=== PATIENT | female | born 2000 | race Asian ===

== ENCOUNTER 2022-12-10 11:58 | Outpatient (CLI) | payer OTHER, SELFPAY ==
--- NOTE | 2022-12-10 12:15 | CRLHL7_ITS ---
For Patients: As a result of the Cures Act, medical imaging exams and procedure reports are released immediately into your electronic medical record. You may view this report before your referring provider. If you have questions, please contact your health care provider. INDICATION: First trimester scan, establish dates. COMPARISON: None. TECHNIQUE: Real-time ho-scale imaging of the pelvis was performed. FINDINGS: Sonographic imaging demonstrates a single living intrauterine gestation. The embryo demonstrates a regular cardiac rate measuring 176 beats per minute. The embryo`s crown-rump length measurement of 2.8 cm corresponds to a gestational age of 9 weeks 4 days with a sonographic due date of July 11, 2023. There is a normal-appearing yolk sac measuring 4.5 mm. There are no gross abnormalities noted within the embryo at this early state of development. The placenta has not yet developed. The gestational sac has a normal appearance. Superior to the gestational sac is a 6 x 15 x 16 mm subchorionic hemorrhage. The amount of fluid within the sac appears appropriate for gestational age. The cervix is closed. The myometrium appears normal. The ovaries are of normal size. The right ovary measures 3.3 x 2.2 x 2.8 cm. The left ovary measures 3.7 x 1.6 x 2.7 cm. Small corpus luteum cyst of in the left ovary measuring 2.1 x 1.5 x 2 cm. There are no suspicious fluid collections noted in the cul-de-sac. IMPRESSION: Normal first trimester OB ultrasound exam. Gestational age calculated at 9 weeks 4 days with a sonographic due date of July 11, 2023. Subchorionic hemorrhage along the superior aspect of the gestational sac. Dictated by Hal Lares MD @ 12/10/2022 3:36:30 PM (Electronically Signed)
== END 2022-12-10 11:59 | disposition home or self-care (01) ==
LOC: US 11:59
PROVIDERS: Visit Provider Advanced Practice Midwife
DX: Z34.91 Encounter for supervision of normal pregnancy, unspecified, first trimester (principal); Z3A.09 9 weeks gestation of pregnancy
CPT/HCPCS: 76801; 86703; 86803; 86850; 86900; 86901; 87086; 87340

== ENCOUNTER 2022-12-10 13:20 | Outpatient (CLI) | payer OTHER, SELFPAY | END 2022-12-10 13:21 | disposition home or self-care (01) | PROVIDERS: Visit Provider Advanced Practice Midwife | DX: Z34.91 Encounter for supervision of normal pregnancy, unspecified, first trimester (principal); Z3A.09 9 weeks gestation of pregnancy | CPT/HCPCS: 86592; 86703; 86762; 86787; 86803; 86850; 86900; 86901; 87086; 87186; 87340 ==

== ENCOUNTER 2023-01-07 14:17 | Outpatient (CLI) | payer OTHER, SELFPAY | END 2023-01-07 14:18 | disposition home or self-care (01) | LOC: NFLDREF 14:18 | PROVIDERS: Visit Provider Advanced Practice Midwife | DX: Z34.91 Encounter for supervision of normal pregnancy, unspecified, first trimester (principal); Z3A.13 13 weeks gestation of pregnancy | CPT/HCPCS: 87491; 87591 ==

== ENCOUNTER 2023-02-23 13:54 | Outpatient (CLI) | payer OTHER, SELFPAY ==
--- NOTE | 2023-02-23 14:00 | CRLHL7_ITS ---
For Patients: As a result of the Century Cures Act, medical imaging exams and procedure reports are released immediately into your electronic medical record. You may view this report before your referring provider. If you have questions, please contact your health care provider. INDICATION: Evaluate anatomy. COMPARISON: 12/10/2022 TECHNIQUE: Real time ho scale imaging of the fetus was performed as well as color Doppler analysis of the umbilical vessels. FINDINGS: Sonographic imaging demonstrates a single living intrauterine gestation. Fetus demonstrates a regular cardiac rate of 145 beats per minute. Fetus has a breech position. The placenta lies anteriorly without evidence of placenta previa. The edge of the placenta is located 4.5 cm from the internal cervical os. Amniotic fluid volume appears normal. Single deepest vertical pocket: 5.1 cm. The cervix is closed and measures 3.5 cm in length. The composite ultrasound gestational age is calculated at 20 weeks 4 days with an estimated sonographic due date of 07/09/2023. The estimated weight is 351 grams which lies at the 52nd %. The following biometric measurements were obtained: Biparietal diameter: 4.7 cm/20 weeks 2 days 48th% Head circumference: 17.9 cm/20 weeks 2 days 45th% Abdominal circumference: 15.2 cm/20 weeks 3 days 47th% Femur length: 3.3 cm/20 weeks 3 days 48th% The HC/AC ratio measures: 1.18 range (1.07-1.25) On anatomic survey, there is a normal appearance of the cerebral ventricles, cavum septi pellucidi, cisterna magna and cerebellum. The nose, lips, and facial profile appear normal. The cervical, thoracic and lumbar spine are well visualized and appear normal. There is a normal four-chamber heart view and the left and right ventricular outflow tracts appear normal. The diaphragm and stomach appear normal. The kidneys and bladder also appear normal. There is a normal three-vessel cord and cord insertion site. The four extremities appear normal. IMPRESSION: Normal OB ultrasound exam with concordance of clinical and sonographic dating. No intrinsic abnormalities noted on anatomic survey. Dictated by Chato Machado MD @ 02/25/2023 8:57:03 AM (Electronically Signed)
== END 2023-02-23 13:55 | disposition home or self-care (01) ==
LOC: US 13:55
PROVIDERS: Visit Provider Advanced Practice Midwife
DX: Z34.92 Encounter for supervision of normal pregnancy, unspecified, second trimester (principal); Z3A.20 20 weeks gestation of pregnancy
CPT/HCPCS: 76805

== ENCOUNTER 2023-04-21 13:02 | Outpatient (CLI) | payer OTHER, SELFPAY | END 2023-04-21 13:03 | disposition home or self-care (01) | LOC: NFLDREF 04-28 12:16 | PROVIDERS: Visit Provider Advanced Practice Midwife | DX: Z34.93 Encounter for supervision of normal pregnancy, unspecified, third trimester (principal); Z3A.28 28 weeks gestation of pregnancy | CPT/HCPCS: 86592 ==

== ENCOUNTER 2023-04-29 07:55 | Outpatient (CLI) | payer OTHER, SELFPAY | END 2023-04-29 07:56 | disposition home or self-care (01) | PROVIDERS: Visit Provider Advanced Practice Midwife | DX: Z34.93 Encounter for supervision of normal pregnancy, unspecified, third trimester (principal) | CPT/HCPCS: 82951; 82952 ==

== ENCOUNTER 2023-06-17 14:40 | Outpatient (CLI) | payer OTHER, SELFPAY | END 2023-06-17 14:41 | disposition home or self-care (01) | LOC: NFLDREF 07-02 11:58 | PROVIDERS: Visit Provider Advanced Practice Midwife | DX: Z34.93 Encounter for supervision of normal pregnancy, unspecified, third trimester (principal); Z36.85 Encounter for antenatal screening for Streptococcus B; Z3A.36 36 weeks gestation of pregnancy | CPT/HCPCS: 87081; 87653 ==

== ENCOUNTER 2023-07-05 10:10 | Inpatient (IN) | payer OTHER, SELFPAY ==
[2023-07-05] VITALS (32 sets, daily range): BP systolic 79–126; BP diastolic 47–83; PULSE 65–114; RESP 16–18; TEMP 36.4–37.1; O2SAT 96–100; BMI 26.6
[2023-07-05 09:12] LABS: Amnisure Rom* POSITIVE
--- NOTE | 2023-07-05 10:09 | W.PM.LDBA ---
Documented by User: Danyell Tidwell 07/05/23 21:00 Subjective History of Present Illness Time Seen by Provider: 10:09 Date Seen: 07/05/23 Narrative: Patient is being admitted to Labor and Delivery with spontaneous rupture of membrane at 0700 this morning. Clear fluid and irregular contractions. She is a 23 year old at 39 weeks gestation. Her full history and physical was dictated by H&P by Jemma Alva CNM on 06/24/23. Please see this for details. She is opting for 6 hour expectant management after R/B/A were discussed. She plans on having unmedicated . GBS positive discussed antibiotic prophylactic. Specific Issues/Plans [employer] currently deployed, returning on the H&P by Jemma Alva CNM on 06/24/23 -GBS positive - EDWIN 1.5 x 1.6 x 0.6 cm not noted on 20 wk US - Asymptomatic bacteriuria noted in NOB labs, treated with cephalexin 12/12, consider ERIC-declined -Varicella non-immune Recommend vaccine pp - Abnormal 1 hr GCT, passed all values of 3 hr COVID: fully vaccinated, boosted [place], Copy of card made for the chart Flu: declines TDAP: declined RSV: declined 32wk Mental Health: 05/20/2023 OB - Problem Based A/P Additional Plan (1) PROM (premature rupture of membranes): Status: Acute (2) Pain during labor: Status: Acute (3) Rupture of membranes with clear amniotic fluid: Status: Acute (4) Positive GBS test: Status: Acute Plan Assessment and plan SROM clear fluid at 0700 FHT- Category 1 Admit for GBS antibiotic prophylaxis Expectant management Assess after 6 hours Delivery/Labor/Induction Plan Plan: expectant management OB Result Labs Blood Type: A (+) positive GBS Status: positive OB Exam Physical Exam Vital signs: Temp Pulse Resp BP Pulse Ox 97.9 F 65 18 126/83 99 07/05/23 09:06 07/05/23 09:06 07/05/23 09:06 07/05/23 09:06 07/05/23 08:55 Detailed Labor and Delivery Exam Patient Gravid: Yes Contraction Frequency: 3-4 Contraction duration (sec): 50 Tachysystole: No Contraction intensity: Mild Comments: Vitals Reviewed Constitutional:? Alert and oriented x3 HEENT:? Normocephalic, atraumatic Neck:? Supple Lungs:? Clear to auscultation bilaterally Heart:? Regular rate and rhythm, no murmur, rub or gallop Abdomen:? Soft, nontender, and gravid. confirmed with cervical exam. Extremities:? No edema or erythema Cervix: Deferred PER pt's preference. NST: 125 bpm/Moderate variability/ accelerations/no decelerations/ Every 3-4 contractions lasting 50-60 sec Fetus (Single) Amniotic Membrane Fluid Description: Clear Heart Rate Baseline: 125 Monitor Accelerations: Present Monitor Decelerations: None Cinema Or Theatre Manager Variability: Minimal (3-5) Documented by User: Lee Ann Tamayo CNM 07/05/23 21:28 Subjective History of Present Illness Specific Issues/Plans [employer] currently deployed, returning on the H&P by Jemma Alva CNM on 06/24/23 -GBS positive - EDWIN 1.5 x 1.6 x 0.6 cm not noted on 20 wk US - Asymptomatic bacteriuria noted in NOB labs, treated with cephalexin 12/12, consider ERIC-declined -Varicella non-immune Recommend vaccine pp - Abnormal 1 hr GCT, passed all values of 3 hr COVID: fully vaccinated, boosted [place], Copy of card made for the chart Flu: declines TDAP: declined RSV: declined 32wk Mental Health: 05/20/2023 OB - Problem Based A/P Additional Plan (1) PROM (premature rupture of membranes): Status: Acute (2) Pain during labor: Status: Acute (3) Rupture of membranes with clear amniotic fluid: Status: Acute (4) Positive GBS test: Status: Acute Plan ASSESSMENT:? 23 yr old at 39 weeks gestation SROM- clear fluid at 0700 Pt declined labor augmentation ? complicated by:?None Labor type: Spontaneous, Early labor? Category: 1 FHR pattern.?? Labor complicated by: n/a GBS: positive? ? PLAN:? 1. Routine intrapartum cares as ordered. Continue with expectant management. Discussed recommendation of pitocin vs expectant and risk/benefit of each option. If desires expectant recommend no more than 12 hours unless patient is becoming more uncomfortable or labor progression is assessed with cervical change. Patient prefers expectant management. 2. Monitoring per policy intermittent? 3. Planning unmedicated . Candidate for analgesia of choice if desired.?? 4. Patient encouraged to reposition and ambulate to promote physiologic labor and .? 5. GBS prophylaxis initiated for GBS positive status. Will treat with antibiotics per protocol. 6. Anticipate ? I,?Lee Ann Tamayo APRN, SHAYY, was present for visit and have reviewed and agree with documentation by the Certified Nurse Midwifery Student.
[2023-07-05 10:21] LABS: Basophils Absolute Auto 0.05 K/uL (0.00-0.30); Basophils Percent Auto 0.6 % (0.0-3.0); Eosinophils Percent Auto 1.1 % (0.0-7.0); Hematocrit 41.4 % (33.0-51.0); Hemoglobin* 14.2 gm/dL (12.0-16.0); Immature Granulocytes Abs Auto 0.06 K/uL (0.00-0.30); Immature Granulocytes Pct Auto 0.7 %; Lymphocytes Percent Auto 17.7 % (20-44); Mean Corpuscular HGB Conc 34 gm/dL (32-36); Mean Corpuscular Hemoglobin 31 pg (26-34); Mean Corpuscular Volume 89 fL (80-100); Neutrophils Percent Auto 72.9 % (42.0-72.0); Platelet Count* 198 K/uL (140-440); RDW Coefficient of Variation % 12.7 % (11.5-15.5); Red Blood Count 4.63 m/uL (4.00-5.20); White Blood Count* 8.94 K/uL (4.50-11.00)
[2023-07-05] MEDS: LACTATED RINGERS 1000 ML 1,000 ML 125 ML IV (10:21)
[2023-07-05] MEDS: AMPICILLIN 2 GM in 0.9 % SODIUM CHLORIDE Mini-bag 100 ML IVPB (10:22)
[2023-07-05 10:25] LABS: Slide Review Reflex No
--- NOTE | 2023-07-05 12:56 | PC.SOCIAL ---
Received social work referral. Phone call to OB nurse station to discuss referral. Referral due to social drivers of health assessment. Pt answered rarely to how often does anyone, including family, friends and others insult or talk down to you. Pt answered sometimes to how often does anyone, including family, friends and others, scream or curse at you. Met with pt to discuss social drivers of health assessment. Pt informs that she answered rarely and sometimes to the referenced questions due to arguments with her mother. Pt reports that she lived with her mother during her . Pt's reports that her was deployed, but he returned yesterday from deployment. Pt plans to move with her to [place] and does not plan to stay with her mother any longer. Pt reports she has a good relationship with her and currently feels safe at home. No further social work needs. Informed pt if she has any further questions she may reach out to social work department. Provided update to pt's nurse.
--- NOTE | 2023-07-05 13:15 | P.OBHP_ITS ---
OB - H&P: HPI Labor/Induction History of Present Illness Chief Complaint: The patient is a 23 year old 1 para 0 at 39 weeks gestation by LMP , who presents to labor and delivery with SROM at 0700 and irregular contractions. Rated contractions 3/10 on pain scale and coping. She desires expectant managem ent. Presented patient with risk of infection with PROM in the setting of positive GBS status. Chief complaint: Maternity : 1 Para: 0 Narrative: Lurdes Wang is a 23 year old female Specific Issues/Plans [employer] currently deployed, returning on the H&P by Jemma Alva CNM on 06/24/23 -GBS positive - EDWIN 1.5 x 1.6 x 0.6 cm not noted on 20 wk US - Asymptomatic bacteriuria noted in NOB labs, treated with cephalexin 12/12, consider ERIC-declined -Varicella non-immune Recommend vaccine pp - Abnormal 1 hr GCT, passed all values of 3 hr COVID: fully vaccinated, boosted [place], Copy of card made for the chart Flu: declines TDAP: declined RSV: declined 32wk Mental Health: 05/20/2023 History of Present Dating criteria: based on LMP care: good care Medical complications: none Labs Blood type: A (+) positive GBS status: positive Meds Home Medications and Allergies Home Medications Medication Instructions Recorded Confirmed Type vits no.126-ferrous fum 1 tab PO DAILY 12/10/22 07/05/23 History 28 mg iron-folic acid 800 mcg tablet (Classic ) Allergies Allergy/AdvReac Type Severity Reaction Status Date / Time No Known Drug Allergies Allergy Verified 07/05/23 09:14 OB - H&P: Exam Physical Exam: Vital signs: Temp Pulse Resp BP Pulse Ox 98.4 F 114 H 16 109/72 99 07/05/23 12:45 07/05/23 12:45 07/05/23 12:45 07/05/23 12:45 07/05/23 08:55 Narrative: Vitals Reviewed Constitutional:? Alert and oriented x3 HEENT:? Normocephalic, atraumatic Neck:? Supple Lungs:? Clear to auscultation bilaterally Heart:? Regular rate and rhythm, no murmur, rub or gallop Abdomen:? Soft, nontender, and gravid. Vertex confirmed with cervical exam. Extremities:? No edema or erythema Cervix: 3 cm/60%/-2 station/vertex FHT: 125 by Doppler Constitutional: Constitutional: no acute distress OB - Results Labs Labs: Short CBC 07/05/23 Range/Units 10:10 WBC 8.94 (4.50-11.00) K/uL Hgb 14.2 (12.0-16.0) gm/dL Hct 41.4 (33.0-51.0) % Plt Count 198 (140-440) K/uL OB - Problem Based A/P Additional Plan (1) Pain during labor: Status: Acute (2) Rupture of membranes with clear amniotic fluid: Status: Acute (3) Positive GBS test: Status: Acute Plan ASSESSMENT:? 23 yr old at 39 weeks gestation SROM- clear fluid at 0700 Pt declined labor augmentation ? complicated by:?None Labor type: Spontaneous, Early labor? Category: 1 FHR pattern.?? Labor complicated by: n/a GBS : positive? ? PLAN:? 1. Routine intrapartum cares as ordered. Continue with expectant management? 2. Monitoring per policy intermittent? 3. Planning unmedicated . Candidate for analgesia of choice.?? 4. Patient encouraged to reposition and ambulate to promote physiologic labor and .? 5. GBS prophylaxis initiated for GBS positive status. Will treat with antibiotics per protocol. 6. Anticipate ? Delivery/Labor/Induction Plan Plan: expectant management
[2023-07-05] MEDS: AMPICILLIN 1 GM in 0.9 % SODIUM CHLORIDE Mini-bag 100 ML IVPB ×3 (14:31→22:50)
--- NOTE | 2023-07-05 21:48 | PM.OBPNL ---
Documented by User: Danyell Tidwell 07/05/23 21:56 Subjective Time Seen by Provider: 13:00 Date Seen: 07/05/23 Narrative: At 6 hours of expectant management, Pt is open to SVE. She is coping with contractions Objective Exam: SVE: 360/-2 Contractions palpate mild and irregular q 4-6 min FHT 125 by Doppler Vital Signs: Last Vital Signs Temp 98.4 F 07/05/23 20:20 Pulse 97 07/05/23 19:24 Resp 18 07/05/23 19:22 BP 111/72 07/05/23 19:24 Pulse Ox 96 07/05/23 21:27 Pelvic Exam Dilation (cm): 3 Effacement (%): 60 Station: -2 Contractions Monitor mode: Palpation Contraction Frequency: 4-6 Contraction pattern: Irregular Contraction intensity: Mild Assessment Assessment: early labor Station: -2 Amniotic Membrane Status: SROM Heart Rate Baseline: 125 Monitor Accelerations: Present Monitor Decelerations: None Maternal Status: She is ambulating in room and coping well with contractions Plan Plan: Continue with current plan of care Evaluate 2-4 hours or sooner if needed Anticipating SVB Documented by User: Lee Ann Tamayo CNM 07/05/23 22:00 Plan Plan: ASSESSMENT:? 23 yr old at 39 weeks gestation complicated by:?None Labor type: Spontaneous, Early labor? Intermittent auscultation, reassuring Labor complicated by: n/a GBS: positive? ? PLAN:? 1. Routine intrapartum cares as ordered. Continue current management plan 2. Monitoring per policy intermittent? 3. Planning unmedicated . Candidate for analgesia of choice if desired.?? 4. Patient encouraged to reposition and ambulate to promote physiologic labor and .? 5. GBS prophylaxis initiated for GBS positive status. Will treat with antibiotics per protocol. 6. Evaluate 2-4 hours or sooner if needed 7. Anticipate ? I,?Lee Ann Tamayo APRN, SHAYY, was present for visit and have reviewed and agree with documentation by the Certified Nurse Midwifery Student.
--- NOTE | 2023-07-05 22:26 | PM.OBPNL ---
Documented by User: Danyell Tidwell 07/05/23 22:35 Subjective Time Seen by Provider: 22:26 Date Seen: 07/05/23 Narrative: Pt appear a lot more uncomfortable. Breathing through contractions. Requesting Cervical exam Objective Exam: Cervical exam: /- FHT- Category I Ctx- Every 2-3. Lasting 60-90 sec Vital Signs: Last Vital Signs Temp 98.4 F 07/05/23 21:40 Pulse 97 07/05/23 19:24 Resp 18 07/05/23 21:40 BP 111/72 07/05/23 19:24 Pulse Ox 96 07/05/23 21:27 Pelvic Exam Dilation (cm): 5 Effacement (%): 80 Station: -1 Contractions Monitor mode: External Contraction Frequency: 2-3 Contraction pattern: Irregular Contraction intensity: Moderate Assessment Assessment: early labor Station: -1 Amniotic Membrane Status: SROM Status: Category l Heart Rate Baseline: 125 Intermediate Variability: Moderate (6-25) Monitor Accelerations: Present Monitor Decelerations: None Tracing Comments: Contractions are starting are every 2-3 min at time of assessement Labor Progress: Pt starting to be more uncomfortable, coping Plan Plan: ASSESSMENT:? 23 yr old at 39 weeks gestation complicated by:?None Labor type: Spontaneous, Early labor? Intermittent auscultation, reassuring Labor complicated by: n/a GBS: positive? ? PLAN:? 1. Routine intrapartum cares as ordered. Continue current management plan 2. Monitoring per policy intermittent? 3. Planning unmedicated . Candidate for analgesia of choice if desired.?? 4. Patient encouraged to reposition and ambulate to promote physiologic labor and .? 5. GBS prophylaxis initiated for GBS positive status. Will treat with antibiotics per protocol. 6. Evaluate 2-4 hours or sooner if needed 7. Anticipate ? Documented by User: Lee Ann Tamayo CNM 07/05/23 23:19 Plan Plan: ASSESSMENT:? 23 yr old at 39 weeks gestation complicated by:?None Labor type: Spontaneous, Early labor? Intermittent auscultation, reassuring Labor complicated by: n/a GBS: positive? ? PLAN:? 1. Routine intrapartum cares as ordered. Continue current management plan 2. Monitoring per policy intermittent? 3. Planning unmedicated . Candidate for analgesia of choice if desired.?? 4. Patient encouraged to reposition and ambulate to promote physiologic labor and .? 5. GBS prophylaxis initiated for GBS positive status. Will treat with antibiotics per protocol. 6. Evaluate 2-4 hours or sooner if needed 7. Anticipate ? I,?Lee Ann Tamayo APRN, CNLiza, was present for visit and have reviewed and agree with documentation by the Certified Nurse Midwifery Student.
[2023-07-05] MEDS: LIDOCAINE 2% (PF) 5 ML VIAL EPIDURAL (23:45)
[2023-07-05] MEDS: ROPIVACAINE 0.2% 100 ml 100 ML 10 MG EPIDURAL (23:54)
[2023-07-05] MEDS: LACTATED RINGERS 1000 ML 1,000 ML IV (23:59)
[2023-07-06] VITALS (83 sets, daily range): BP systolic 77–136; BP diastolic 42–90; PULSE 68–103; RESP 16–116; TEMP 36.4–37.6; O2SAT 97–99
--- NOTE | 2023-07-06 00:04 | PM.ANBPRC ---
PFSH PFS Medical History (Updated 07/05/23 @ 21:28 by Lee Ann Tamayo CNM) No significant past medical history Surgical History (Updated 12/10/22 @ 14:50 by Silvina Alva CNM) No significant past surgical history Family History (Updated 12/10/22 @ 13:38 by Lee Ann Tamayo CNM) Mother No problems noted. Father No problems noted. Social History (Updated 12/10/22 @ 14:46 by Lee Ann Tamayo CNM) Narrative: SOCIAL Education: High school, [employer] Work: [employer] Partner: [employer] (currently deployed) Lives with: Living with parents Pets: none Abuse: Denies past/present Special Diet: Denies Ok with a blood transfusion: yes Culture or sabianism beliefs: denies RISK FACTORS Exercise Times/wk: walk, active with [employer] Depression/Anxiety: denies history Seat Belt Use: Routinely Smoking: Denies past/present Alcohol/day: Denies while , denies Caffeine: Coffee/tea Drug Use: Denies past/present Chicken Pox: vaccinate? MRSA: Denies What is your current living situation?: I presently have a place to live Problems where you live: no known problems In the past 12 months, utilities in danger of being shut off: no In past 12 months, lack of transportation kept you from medical appts, meetings, work, or getting things needed for daily living: no In the past 12 mos, have been you worried that your food would run out before you had money to buy more?: never true In the past 12 mos, the food you bought just didn't last and you didn't have money to buy more?: never true Smoking Status: Never smoker How often does anyone, including family, friends and others, physically hurt you: never How often does anyone, including family, friends and others, insult or talk down to you: rarely How often does anyone, including family, friends and others, threaten you with harm: never How often does anyone, including family, friends and others, scream or curse at you: sometimes Little interest or pleasure in doing things: not at all Feeling down, depressed, or hopeless: not at all Meds Home Medications and Allergies Home Medications Medication Instructions Recorded Confirmed Type vits no.126-ferrous fum 1 tab PO DAILY 12/10/22 07/05/23 History 28 mg iron-folic acid 800 mcg tablet (Classic ) Allergies Allergy/AdvReac Type Severity Reaction Status Date / Time No Known Drug Allergies Allergy Verified 07/05/23 09:14 Results Labs Labs: Laboratory Results - last 24 hr 07/05/23 07/05/23 08:55 10:10 WBC 8.94 RBC 4.63 Hgb 14.2 Hct 41.4 MCV 89 MCH 31 MCHC 34 RDW Coeff of Macey 12.7 Plt Count 198 Neut % (Auto) 72.9 H Lymph % (Auto) 17.7 L [place] % (Auto) 7.0 Eos % (Auto) 1.1 Baso % (Auto) 0.6 Neut # (Auto) 6.50 Lymph # (Auto) 1.60 [place] # (Auto) 0.60 Eos # (Auto) 0.10 Baso # (Auto) 0.05 Abs Immat Gran (auto) 0.06 Imm/Tot Granulo (auto) 0.7 Membrane Rupture POSITIVE Blood Type A Positive Antibody Screen NEGATIVE Vital Signs Vital Signs: Last Vital Signs Temp 98.8 F 07/05/23 22:38 Pulse 91 07/06/23 00:03 Resp 18 07/05/23 22:38 BP 109/59 L 07/06/23 00:03 Pulse Ox 99 07/06/23 00:00 Weight: 70.261 kg Height: 162.56 cm Anesthesia Procedures Epidural Insertion Patient Location: OB Start Time: 23:30 Stop Time: 23:59 Start Date: 07/05/23 Stop Date: 07/05/23 Reason for Block: procedure for pain Patient Position: sitting Performed By: Alexx Aguirre Preanesthetic Checklist: IV checked, risks and benefits discussed, monitors and equipment checked, pre-op evaluation, timeout performed and anesthesia consent Prep: chlorhexidine gluconate Monitoring: blood pressure monitoring, continuous pulse oximetry and heart rate Approach: midline Vertebral Space: lumbar (1-5) Epidural Technique: ANAY saline Needle Type: Tuohy needle Injection Technique: continuous catheter Needle gauge: 17 Needle Length (cm): 10 cm Needle Insertion Depth (cm): 6 Catheter Gauge: 19 Catheter Type: multi-orifice Catheter at skin depth (cm): 12 Test Dose Result: negative and lidocaine 1.5% with epinephrine 1 to 200,000
--- NOTE | 2023-07-06 00:27 | P.OBPN_ITS ---
Documented by User: Danyell Tidwell 07/06/23 00:35 Subjective Time Seen by Provider: 00:27 Date Seen: 07/06/23 Narrative: Pt is starting to get comfortable with epidural. Objective Vital Signs: Last Vital Signs Temp 98.8 F 07/05/23 23:50 Pulse 90 07/06/23 00:22 Resp 18 07/05/23 23:50 BP 109/60 07/06/23 00:22 Pulse Ox 99 07/06/23 00:10 Pelvic Exam Dilation (cm): 6 Effacement (%): 90 Station: -1 Contractions Monitor mode: External Contraction pattern: Irregular Contraction intensity: Moderate Assessment Assessment: active labor Station: -1 Amniotic Membrane Status: SROM Status: Category l Heart Rate Baseline: 125 Pharmaceutical Plant Operator Variability: Moderate (6-25) Monitor Accelerations: Present Monitor Decelerations: None Labor Progress: Pt is making labor progress without augementation Plan Plan: ASSESSMENT:? 23 yr old at 39 weeks gestation complicated by:?None Labor type: Spontaneous, Active labor Continues FHT monitoring Epidural infusing Cervix: Labor complicated by: n/a GBS: positive ? PLAN:? 1. Routine intrapartum cares as ordered. Continue current management plan 2. Monitoring per policy continuous 3. Patient encouraged to reposition and ambulate to promote physiologic labor and .? 4. GBS prophylaxis initiated for GBS positive status. Will treat with antibiotics per protocol. 5.. Evaluate 2-4 hours or sooner if needed 6. Anticipate ? Documented by User: Lee Ann Tamayo CNM 07/07/23 07:40 Plan Plan: ASSESSMENT:? 23 yr old at 39 weeks gestation complicated by:?None Labor type: Spontaneous, Active labor Continues FHT monitoring Epidural infusing Cervix: Labor complicated by: n/a GBS: positive ? PLAN:? 1. Routine intrapartum cares as ordered. Continue current management plan 2. Monitoring per policy continuous 3. Patient encouraged to reposition and ambulate to promote physiologic labor and .? 4. GBS prophylaxis initiated for GBS positive status. Will treat with antibiotics per protocol. 5.. Evaluate 2-4 hours or sooner if needed 6. Anticipate ? I,?Lee Ann Tamayo APRN, CNLiza, was present for visit and have reviewed and agree with documentation by the Certified Nurse Midwifery Student.
[2023-07-06] MEDS: PHENYLEPHRINE 100 MCG/ML SYRINGE IVP ×5 (00:35→05:39)
[2023-07-06] MEDS: AMPICILLIN 1 GM in 0.9 % SODIUM CHLORIDE Mini-bag 100 ML IVPB ×2 (03:22→07:25)
[2023-07-06] MEDS: OXYTOCIN 30 unit/500 ML in NS 30 UNIT/500 ML BAG IVPB (04:22)
[2023-07-06] MEDS: LACTATED RINGERS 1000 ML 1,000 ML 125 ML IV (04:34)
[2023-07-06] MEDS: ONDANSETRON 2 MG/ML inj 4 MG IV (04:34)
[2023-07-06] MEDS: ACETAMINOPHEN 500 MG TABLET 1000 MG PO ×2 (05:48→23:06)
[2023-07-06] MEDS: ROPIVACAINE 0.2% 100 ml 100 ML 10 MG EPIDURAL (07:05)
[2023-07-06] MEDS: LACTATED RINGERS 1000 ML 1,000 ML 500 ML IV (07:27)
--- NOTE | 2023-07-06 07:34 | PM.OBPNL ---
Documented by User: [email or web address] Diann 07/06/23 11:36 Subjective Time Seen by Provider: 07:00 Date Seen: 07/06/23 Narrative: Pt reports feeling rectal pressure with contractions. Otherwise comfortable with epidural. Patient opted for Pitocin augmentation at 0400 when her contractions were irregular at every 6-7 min after epidural. Pitocin is currently at 3mu. She had low grade fever, Temp 99.6 F. No other sign of suspected infection. Temp came down after fluid bolus. Objective Exam: On exam she was complete and + 1 station Vital Signs: Last Vital Signs Temp 99.6 F 07/06/23 06:22 Pulse 93 07/06/23 07:29 Resp 18 07/06/23 06:22 BP 111/55 L 07/06/23 07:29 Pulse Ox 98 07/06/23 03:24 Pelvic Exam Dilation (cm): 10 Effacement (%): 100 Station: +1 Contractions Monitor mode: External Contraction pattern: Irregular Contraction intensity: Moderate Pitocin Rate (mU/min): 3 Assessment Assessment: active labor Station: +1 Amniotic Membrane Status: SROM Status: Category l Heart Rate Baseline: 125 Custodial Variability: Moderate (6-25) Monitor Accelerations: Present Monitor Decelerations: None Plan Plan: Cervix 10/100/+1 Begin 2nd stage Documented by User: Kiley Noriega CNM 07/06/23 12:01 Subjective Narrative: Pt reports feeling rectal pressure with contractions. Otherwise comfortable with epidural. Patient opted for Pitocin augmentation at 0400 when her contractions were irregular at every 6-7 min after epidural. Pitocin is currently at 3mu. She had low grade fever, Temp 99.6 F. No other sign of suspected infection. Temp came down after fluid bolus. I, Kiley Noriega APRN CNM, was present for visit and have reviewed and agree with documentation by certified nurse midwifery?student.
--- NOTE | 2023-07-06 11:13 | W.PM.OBVAGDE ---
Documented by User: Danyell Tidwell 07/06/23 11:30 OB Procedure Vag Delivery Mother Details Mother Details: The patient is a 23 year-old, 1, Para 0, now para 1 admitted on 07/05/23 at 39 wk gestation. : 1 Para: 1 Weeks Gestation: 39 Admission Date: 07/05/23 Additional Details Amniotic Membrane Status: SROM Amniotic Membrane Rupture Date: 07/05/23 Amniotic Membrane Rupture Time: 07:15 Amniotic Membrane Fluid Description: Clear Analgesia/Anesthesia Type: Epidural Waterbirth: No Pitcoin: Yes Intrapartal Events: Labor Augmentation, ROM >18 Hours and Prolonged 2nd Stage >2.5 Hrs Delivery augmentation: pitocin Labor Onset: 00:00 Complete: 07:00 Pushin:48 Heart: heart tones during second stage were category 1 Delivery Details Delivery Date: 07/06/23 Delivery Time: 10:40 Route of delivery: Infant Gender: Male Viability: Alive; Heart Rate Present Position at Delivery: OA Delivery Details: Patient was admitted for spontaneous rupture of membrane clear fluid at 0000 and progressed with augmentation. Patient was complete at 0700 and pushing at 0740 . of a viable female at 1048 with mother in a semi-lamar position in bed. Vertex delivered OA and restituted to TORRES. No nuchal cord or shoulder. Body delivered easily and without incident. Infant passed to mothers abdomen with a vigorous cry. Cord was clamped and cut at > 5 minutes. APGARS were 8 at one minute and 9 at five minutes respectively. Mouth was bulb suctioned. Intact placenta with a 3 vessel cord delivered spontaneously at 1048. Fundus firm. Small 2nd degree perineal tear was identified and repaired using existing epidural in typical fashion. QBL 70 cc. Mother and baby stable; mother plans to breastfeed. weight pending. 1 Minute Interval Total Score: 8 5 Minute Interval Total Score: 9 Additional Details Shoulder Dystocia: No Placenta Delivery Time: 10:48 Placental Delivery Description: Spontaneous Delivery repair: Vicryl Procedure Done: Global Laceration: Perineal - 2nd Degree (small ) Episiotomy Description: None Blood Loss Measurement Type: QBL (70) Bakri Used: No Sponge/Need Count Correct: Yes Cord Vessel Description: 3 Vessels Event Summary Status: Mother and were stable after delivery. Disposition: floor Documented by User: Kiley Noriega CNM 07/06/23 12:06 OB Procedure Vag Delivery Additional Details Blood Loss: 70
[2023-07-06] MEDS: IBUPROFEN 600 MG TABLET PO (14:48)
[2023-07-07 02:27] LABS: Rapid Plasma Reagin (RPR) Non Reactive (Non Reactive)
[2023-07-07] MEDS: IBUPROFEN 600 MG TABLET PO (02:28)
[2023-07-07 02:31] VITALS: BP 110/70; PULSE 67; RESP 16; TEMP 36.4; O2SAT 96
[2023-07-07 04:52] VITALS: BP 112/60; PULSE 71; RESP 16; TEMP 36.6; O2SAT 96
--- NOTE | 2023-07-07 07:35 | P.OBPN_ITS ---
OB - PN:Subj Subjective Date Seen: 07/07/23 Patient comments OB post-: no complaints [place] status: and doing well feeding status: exclusively Narrative: Lurdes is a 23 y.o. who was admitted to [facility] for labor.? She had an uncomplicated NVD.? ?? The patient feels well.? The pain is well controlled with current medications.? She has no new complaints.? She is breast feeding and reports things are going well.? the patient has done well.? Vitals have been stable.? She has remained afebrile.? Has a good appetite, is tolerating a general diet.? She has been having trouble voiding and needed to be straight cathed times two for lagre amounts since delivery. Will have nursing monitor this today and may need indwelling catheter for a short time.? She is passing gas and has not had a bowel movement.? She is ambulating and denies any dizziness.? Has Small amount of rubra lochia.? OB - PN: Obj Exam Physical Exam: Vital signs: Temp Pulse Resp BP Pulse Ox O2 Del Method 97.8 F 71 16 112/60 96 Room Air 07/07/23 04:52 07/07/23 04:52 07/07/23 04:52 07/07/23 04:52 07/07/23 04:52 07/07/23 04:52 Narrative: GENERAL APPEARANCE:? normal affect, alert, no distress? MOOD:? appropriate? HEENT: normocephalic, neck supple, full ROM? CHEST:? Symmetrical chest wall movement.? Normal respiratory effort.? Clear to auscultation ? HEART:? regular rate and rhythm? ABDOMEN:? soft, non-tender. Uterine fundus is firm, at Umbilicus, Midline and is appropriate for the stage of recovery.? Bowel sounds present.? PERINEUM:? mild edema of the perineum, there is a 2nd degree laceration that is healing well.? EXTREMITIES:? normal and no edema? OB - PN: Obj Data Labs Labs: Laboratory Results - last 24 hr 07/05/23 10:10 RPR Screen Non Reactive OB - PN: A/P Delivery Assessment and Plan (1) care and examination immediately after delivery: Status: Acute (2) Lactating mother: Status: Acute (3) Difficulty voiding: Status: Acute Plan day: 1 Plan: routine care Comments: G 1 P 1 status post uncomplicated NVD??? 1.? Continue route PP cares? 2.? .? May see if desired? 3.? Anticipate discharge home tomorrow? 4. Post delivery voiding difficulty. Insert indwelling catheter if unable to void this morning. Consider removal later this evening.
[2023-07-07 08:36] VITALS: BP 105/71; PULSE 71; RESP 16; TEMP 36.6; O2SAT 96
--- NOTE | 2023-07-07 13:16 | PM.ANPOST ---
Post Anesthesia Note Post Anesthesia Note Patient seen: Inpatient Respiratory Status: adequate Cardiovascular Status: adequate Mental Status: baseline Pain: adequate Temp: baseline Anesthetic awareness: N/A Complications: none Follow care: none
[2023-07-07] MEDS: DOCUSATE SODIUM 100 MG CAPSULE PO (16:47)
[2023-07-07 16:48] VITALS: BP 124/86; PULSE 70; RESP 16; O2SAT 96
[2023-07-07 22:03] VITALS: BP 121/83; PULSE 86; RESP 16; TEMP 36.6; O2SAT 98
[2023-07-08 04:32] VITALS: BP 110/70; PULSE 63; RESP 16; TEMP 36.6; O2SAT 96
[2023-07-08] MEDS: ACETAMINOPHEN 500 MG TABLET 1000 MG PO (04:37)
[2023-07-08 08:00] VITALS: BP 106/66; PULSE 63; RESP 12; TEMP 37.2
--- NOTE | 2023-07-08 08:28 | PM.OBDSVD1 ---
DS: Providers Provider Date Seen: 07/08/23 Date of admission: 07/05/23 10:10 Primary care physician: Not a Local Provider Admitting Clinician: Lee Ann Tamayo CNM Consults: 07/05/23 11:40 Consult to Residential Care Facility Manager [CONS] Routine Comment: Reason for Consult:: Social Service Consult Attending Physician on discharge: Lee Ann Tamayo CNM DS: Diagnosis Discharge Diagnosis (1) care and examination immediately after delivery: Status: Acute (2) Lactating mother: Status: Acute Exam Narrative: Exam Narrative: GENERAL APPEARANCE:? normal affect, alert, no distress MOOD:? appropriate CHEST:? clear to auscultation HEART:? regular rate and rhythm ABDOMEN:? soft, non-tender the uterine fundus is at Umbilicus, Midline and is appropriate for the stage of recovery. PERINEUM:? mild edema of the perineum, there is a Perineal Laceration,?2nd degree, that is healing well. EXTREMITIES:? normal and no edema Const: Vital Signs, click to edit/add: Vital Signs - 24 hr 07/07/23 08:36 07/07/23 16:48 07/07/23 22:03 Temperature 97.8 F 97.9 F Pulse Rate [Pulse Oximeter] 71 70 86 Respiratory Rate 16 16 16 Blood Pressure [Le ft Arm] 105/71 124/86 121/83 Pulse Oximetry 96 96 98 Oxygen Delivery Me thod Room Air Room Air Room Air 07/08/23 04:32 07/08/23 08:00 Temperature 97.9 F 98.9 F Pulse Rate [Pulse Oximeter] 63 63 Respiratory Rate 16 12 Blood Pressure [Le ft Arm] 110/70 106/66 Pulse Oximetry 96 Oxygen Delivery Me thod Room Air Documenting provider has reviewed patient's vital signs: yes OB - DS: Summary Hospital Course Hospital Course: Lurdes is a 23 y.o. G 1 P 1 who was admitted to [facility] for spontaneous labor. ?She had a NVD that was complicated by. The patient feels well. ?The pain is well controlled with current medications. ?She has no new complaints. ?She is breast feeding and reports things are going well. the patient has done well.? Vitals have been stable.? She has remained afebrile.? Has a good appetite, is tolerating a general diet. ?She is voiding without difficulty.? She is passing gas and has not had a bowel movement.? She is ambulating and denies any dizziness.? Has small amount of rubra lochia. She is planning condoms for prevention. Problems: none plan: Discharge home with baby. Follow up in 2 weeks and 6 weeks. , may see if needed Hgb 14.2 prior to delivery, not repeated Peripartum Data delivery method: Vaginal Laceration description: Perineal - 2nd Degree complications: none [place] Infant Gender: Male Infant Discharge Plan: Home Status at Discharge Functional status at discharge: independent ambulation Overall status at discharge: patient is progressing back to baseline Time Spent with Patient Time attestation: Total time spent providing and/or coordinating discharge services: Time spent: Less than 30 minutes Discharge Plan Discharge Disposition: Home, Self-Care Date of Admission: 07/05/23 10:10 Attending Provider on Discharge: Lee Ann Tamayo Primary Care Provider: Provider,Not a Local Condition: Stable Anticipated Discharge Date/Time: 07/08/23 12:00 Discharge Medications: New docusate sodium 100 mg Capsule 100 mg PO DAILY Qty: 90 0RF ibuprofen 600 mg Tablet 600 mg PO Q6H PRNQty: 60 0RF acetaminophen 500 mg Tablet 1,000 mg PO Q6H PRNQty: 0 0RF Continued Classic 28 mg iron- 800 mcg tablet 1 tab PO DAILY Discharge Orders: Discharge Order (Routine); Ordered 07/08/23 Ordered By: Lee Ann Tamayo Patient Education: OB Over the Counter Medication Information, OB Vaginal/Breast Feeding Additional Instructions: Discharge instructions were reviewed with the patient including signs and symptoms of infection and home going medications Nothing vaginally for 6 weeks: no tampons or intercourse Off Work or School for 6 weeks 2-week visit: discuss feeding concerns, review control options and screen for anxiety/depression. 6-week visit for an annual exam. consultation services are available to all mothers and babies for the first year after delivery.? To make an appointment, please call [phone]. Activity Level: Activity as Tolerated Discharge Diet: Regular Follow Up Appointments: [facility] [Provider Group] Forms: [employer] Info Instructions
== END 2023-07-08 12:30 | disposition home or self-care (01) | DRG 807 ==
LOC: OB OUT 10:11 → OB 10:11
PROVIDERS: Admitting Provider Advanced Practice Midwife; Visit Provider Advanced Practice Midwife
DX: O99.824 Streptococcus B carrier state complicating childbirth (principal); Z37.0 Single live birth; O42.02 Full-term premature rupture of membranes, onset of labor within 24 hours of rupture; O63.1 Prolonged second stage (of labor); O70.1 Second degree perineal laceration during delivery; Z3A.39 39 weeks gestation of pregnancy; R39.198 Other difficulties with micturition
CPT/HCPCS: 01967; 36415; 51798; 84112; 85025; 86592; 86850; 86900; 86901; A9270; J0290; J2371; J2405; J2795; J7120